=== PATIENT | female | born 1970 | race Caucasian/White ===

== ENCOUNTER → 2020-11-01 08:32 | Outpatient (CLI) | payer OTHER, SELFPAY ==
--- NOTE | 2020-11-01 08:32 | MM_ITS ---
PROCEDURE INFORMATION: Exam: MG Screening 3D Mammography Exam date and time: 11/01/2020 8:32 AM Age: 50 years old Clinical indication: screening mammogram TECHNIQUE: Imaging protocol: Screening tomosynthesis and 2D mammography including computer-aided detection (CAD) when performed. COMPARISON: No relevant prior studies available. FINDINGS: MAMMOGRAPHY: Breast composition: The breast tissue is heterogeneously dense, which may obscure small masses. Mass: None. Architectural distortion: No new or suspicious architectural distortion. Calcifications: No new or suspicious calcifications are present Asymmetric density: No new or suspicious asymmetric density is present Skin thickening: None. Axillary adenopathy: None. IMPRESSION: No mammographic evidence of malignancy. Recommend annual screening mammography unless otherwise clinically indicated. ASSESSMENT: BI-RADS category 1: Negative
== END ==
PROVIDERS: PCP Nurse Practitioner Family; Visit Provider Obstetrics & Gynecology
DX: Z12.31 Encounter for screening mammogram for malignant neoplasm of breast (principal)
CPT/HCPCS: 77063; 77067

== ENCOUNTER → 2021-11-06 10:49 | Outpatient (CLI) | payer OTHER, SELFPAY ==
--- NOTE | 2021-11-06 10:49 | MM_ITS ---
PROCEDURE INFORMATION: Exam: MG Bilateral Screening 3D Mammography Exam date and time: 11/06/2021 10:57 AM Age: 51 years old Clinical indication: Screening examination TECHNIQUE: Imaging protocol: Bilateral Screening tomosynthesis and 2D mammography including computer-aided detection (CAD) when performed. COMPARISON: MG MM DIG SCREENING MAMM BI W/CAD 11/01/2020 8:39 AM FINDINGS: MAMMOGRAPHY: Breast composition: The breast is heterogeneously dense, which may obscure small masses. Mass: None. Architectural distortion: No new or suspicious architectural distortion. Calcifications: No new or suspicious calcifications are present Asymmetric density: No new or suspicious asymmetric density is present Skin thickening: None. Axillary adenopathy: None. IMPRESSION: No mammographic evidence of malignancy. Recommend annual screening mammography unless otherwise clinically indicated. ASSESSMENT: BI-RADS category 1: Negative
== END ==
PROVIDERS: PCP Nurse Practitioner Family; Visit Provider Obstetrics & Gynecology
DX: Z12.31 Encounter for screening mammogram for malignant neoplasm of breast (principal)
CPT/HCPCS: 77063; 77067

== ENCOUNTER → 2022-04-13 10:57 | Outpatient (CLI) | payer OTHER, SELFPAY ==
--- NOTE | 2022-04-13 | CA_ITS ---
FINAL REPORT TECHNIQUE: Color Doppler, duplex Doppler and compression sonography of the left lower extremity deep venous systems was performed. CLINICAL HISTORY: .Pt has a visible varicosity in the Left thigh. Pt states this has been present for years. FINDINGS: There is no evidence of deep venous thrombosis from the level of the groin to the calf. The veins are patent and compressible. IMPRESSION: No evidence of deep venous thrombosis left lower extremity. Reviewed, Interpreted and Dictated by Anthony Dey III, MD Transcribed by Kadie Cruz Authenticated and . [facility]
== END ==
PROVIDERS: PCP Nurse Practitioner Family; Visit Provider Nurse Practitioner Family
DX: M79.89 Other specified soft tissue disorders (principal); I83.892 Varicose veins of left lower extremity with other complications
CPT/HCPCS: 93971

== ENCOUNTER → 2022-11-09 09:56 | Outpatient (CLI) | payer OTHER, SELFPAY ==
--- NOTE | 2022-11-09 09:56 | MM_ITS ---
PROCEDURE INFORMATION: Exam: MG Bilateral Screening 3D Mammography Exam date and time: 11/09/2022 9:54 AM Age: 52 years old Clinical indication: Screening examination TECHNIQUE: Imaging protocol: Bilateral Screening tomosynthesis and 2D mammography including computer-aided detection (CAD) when performed. COMPARISON: 1. MG MM DIG SCREENING MAMM BI W/CAD 11/06/2021 10:57 AM 2. MG MM DIG SCREENING MAMM BI W/CAD 11/01/2020 8:39 AM FINDINGS: MAMMOGRAPHY: Breast composition: There are scattered areas of fibroglandular density. Mass: None. Architectural distortion: None. Calcifications: No suspicious calcifications. Asymmetric density: None. Skin thickening: None. Axillary adenopathy: None. IMPRESSION: No mammographic evidence of malignancy. Annual screening is recommended unless otherwise clinically indicated. ASSESSMENT: BI-RADS Category 1: Negative
== END ==
PROVIDERS: PCP Nurse Practitioner Family; Visit Provider Obstetrics & Gynecology
DX: Z12.31 Encounter for screening mammogram for malignant neoplasm of breast (principal)
CPT/HCPCS: 77063; 77067

== ENCOUNTER 2022-12-25 19:27 | Emergency (ER) | payer OTHER, SELFPAY ==
[2022-12-25] VITALS (8 sets, daily range): BP systolic 118–157; BP diastolic 69–110; PULSE 74–96; RESP 15–19; TEMP 37; O2SAT 94–97; BMI 35.2
--- NOTE | 2022-12-25 19:26 | ECG_ITS ---
APPROVED REPORT Exam: Resting ECG HR:93 bpm ECG Measurements Heart Rate 93 AXES KS 165 P 66 QRSd 108 QRS 30 QT 354 T 56 QTc 405 Conclusion SINUS RHYTHM WITH OCCASIONAL VENTRICULAR PREMATURE COMPLEXES Left atrial abnormality BORDERLINE ECG UNCONFIRMED REPORT Electronically signed by : Bob Chatman MD 12/26/2022 09:54:28
--- NOTE | 2022-12-25 19:31 | XR_ITS ---
PROCEDURE INFORMATION: Exam: XR Chest Exam date and time: 12/25/2022 7:36 PM Age: 52 years old Clinical indication: Pain; Chest pressure; Additional info: Chest pain TECHNIQUE: Imaging protocol: Radiologic exam of the chest. Views: 1 view. COMPARISON: No relevant prior studies available. FINDINGS: Lungs: Opacities in both bases may represent atelectasis or pneumonia.. Pleural spaces: Unremarkable. No pleural effusion. No pneumothorax. Heart/Mediastinum: Unremarkable. No cardiomegaly. Bones/joints: Unremarkable. IMPRESSION: Opacities in both bases may represent atelectasis or pneumonia..
[2022-12-25 19:40] LABS: Basophils # 0.1 K/mm3 (0-0.2); Basophils % 0.8 % (0.1-2.0); Eosinophils # 0.2 K/mm3 (0.0-0.4); Eosinophils % 1.7 % (0.1-12.0); Hemoglobin 14.9 g/dL (12.2-16.2); Lymphocytes # 4.7 K/mm3 (0.7-4.5); Lymphocytes % 34.9 % (10-50); Mean Corpuscular HGB Conc 33.8 g/dL (31.8-35.4); Mean Corpuscular Hemoglobin 29.5 pg (27.0-31.2); Mean Corpuscular Volume 87.1 fl (81-99); Mean Platelet Volume 8.6 fl (7.4-10.4); Monocytes # 0.5 K/mm3 (0.1-1.0); Monocytes % 3.6 % (1.7-9.3); Platelet Count 236 K/mm3 (142-424); Red Blood Count 5.05 M/mm3 (4.20-5.40); Red Cell Distribution Width 13.2 % (11.5-17.5); White Blood Count 13.5 K/mm3 (4.8-10.8)
[2022-12-25 19:47] LABS: Activated Partial Thrombo Time 28.2 seconds (22.8-30.6); Alanine Aminotransferase 45 U/L (12-78); Albumin Level 4.4 g/dl (3.5-5.0); Albumin/Globulin Ratio 1.2 (1.1-1.8); Alkaline Phosphatase 70 U/L (38-126); Anion Gap 12.2 mEq/L (5-15); Aspartate Amino Transferase 45 U/L (14-36); Bilirubin,Total 0.6 mg/dl (0.2-1.3); Blood Urea Nitrogen 12 mg/dl (7-17); Calcium 8.7 mg/dl (8.4-10.2); Carbon Dioxide 27 mmol/L (22.0-30.0); Chloride 105 mmol/L (98-107); Creatinine Clearance Estimated 151 mL/min (50-200); Estimated Glomerular Filt Rate 88 ml/min (>60); GFR (African American) 106 ML/MIN (>60); Globulin 3.7 g/dL (1.3-3.2); Glucose 196 mg/dl (74-100); Potassium 4.2 mmoL/L (3.5-5.1); Prothrombin Time 10.8 seconds (10.1-12.5); Sodium 140 mmol/L (136-145); Total Protein,Serum 8.1 g/dl (6.3-8.2)
[2022-12-25 19:50] LABS: HCG Qualitative, Serum Negative (Negative)
[2022-12-25 19:58] LABS: NT Pro Brain Natriuretic Pep. 59.1 pg/mL (0-125)
[2022-12-25 20:03] LABS: Troponin I < 0.01 ng/ml (0.00-0.034)
[2022-12-25 20:22] LABS: C-Reactive Protein 17.2 mg/L (0-4)
[2022-12-25 20:35] LABS: Erythrocyte Sedimentation Rate 18 mm/hr (0-30)
[2022-12-25 20:36] LABS: Procalcitonin 0.075 ng/mL (0.0-2.0)
--- NOTE | 2022-12-25 20:42 | PC.NURSE ---
Blood cultures drawn per protocol and sent
--- NOTE | 2022-12-25 21:34 | CT_ITS ---
PROCEDURE INFORMATION: Exam: CTA Chest With Contrast Exam date and time: 12/25/2022 9:47 PM Age: 52 years old Clinical indication: Pain; Chest pressure; Additional info: Dyspnea, chest pain TECHNIQUE: Imaging protocol: Computed tomographic angiography of the chest with contrast. Exam focused on the arteries. 3D rendering (Not supervised by radiologist): MIP and/or 3D reconstructed images were created by the technologist. Radiation optimization: All CT scans at this facility use at least one of these dose optimization techniques: automated exposure control; mA and/or kV adjustment per patient size (includes targeted exams where dose is matched to clinical indication); or iterative reconstruction. Contrast material: ISOVUE; Contrast volume: 70 ml; Contrast route: INTRAVENOUS (IV); REPORTING DATA: Count of CT and Cardiac NM exams in prior 12 months: This patient has received 0 known CTs and 0 known cardiac nuclear medicine studies in the 12 months prior to the current study. COMPARISON: CR XR CHEST PORTABLE 12/25/2022 7:36 PM FINDINGS: Pulmonary arteries: No definite emboli detected. Some motion artifacts. Aorta: There is no aortic aneurysm. Calcified plaques. Some motion artifacts at the aortic root. No definite dissection. Lungs: No pulmonary consolidation. Approximate 8 mm left basilar peripheral pulmonary nodule versus pleural-based nodule, series 5, image 81, coronal series 1001, image 54, sagittal series 1002, image 66. Calcified granulomas in the right middle lobe and left lower lobe. Minimal subsegmental atelectasis in the posterior lower lungs. A few motion artifacts. Pleural spaces: Unremarkable. No significant pleural effusion. No pneumothorax. Heart: The heart is not enlarged. Trace pericardial fluid, no significant effusion. Heart RV/LV ratio: RV/LV ratio approximate 0.85, within normal limits. However, there is slight reflux of contrast into the IVC and hepatic veins, which could be due to underlying right heart disease. Coronary arteries: A few coronary artery calcifications. Lymph nodes: No significantly enlarged lymph nodes by short axis criteria. Liver: Prominent patchy fatty changes in the liver. No discrete mass as visualized. Areas of periportal sparing. Gallbladder and bile ducts: Cholecystectomy clips. No significant biliary dilatation as visualized. Spleen: Mild splenomegaly approximate 14.2 cm long axis series 5, image 94. Adrenal glands: Slight nodularity of the right adrenal gland series 5, image 106, question underlying 7 mm nodule, too small to accurately characterize, but no follow-up of tiny lesions of this size is indicated per ACR guidelines. Bones/joints: There is no evidence of acute fracture. Mild chronic appearing anterior wedge deformities of T10 through T12 vertebral bodies.There are spinal degenerative changes, with multilevel disc narrrowing and spondylosis. No high-grade listhesis. Soft tissues: There are no soft tissue masses or fluid collections. IMPRESSION: 1. No findings of pulmonary emboli. 2. Coronary artery calcifications. 3. Chronic granulomatous changes, patchy subsegmental atelectasis in the lungs. No focal consolidation. 4. 8 mm left basilar versus pleural-based versus pulmonary nodule which could be a noncalcified granuloma, but is indeterminate.For patients at low risk (minimal or absent history of smoking and of other known risk factors), recommend CT Chest at 6-12 months, then consider CT Chest at 18-24 months. For patients at high risk (history of smoking or of other known risk factors), recommend CT Chest at 6-12 months, then CT Chest at 18-24 months. (Reference: Gary) 5. Additional nonemergency and chronic findings as above, including fatty
--- NOTE | 2022-12-25 21:43 | PC.NURSE ---
patient gone to RAD at this time.
--- NOTE | 2022-12-25 21:43 | PC.NURSE ---
pt to ct scan
--- NOTE | 2022-12-25 21:51 | PC.NURSE ---
patient back in the room at this time.
--- NOTE | 2022-12-25 21:52 | HMH.EDCP ---
Discharge Plan Disposition Patient Disposition: Home, Self-Care Prescriptions Prescriptions: No Action escitalopram oxalate [Lexapro] 5 mg tablet 5 mg PO ONCE lisinopril 5 mg tablet 5 mg PO ONCE Referrals Follow up/Referrals: Nirali Denson APRN [Primary Care Provider] - See instructions Clinical Impressions Clinical Impression: Atypical chest pain Instructions Patient Instructions: DI for Atypical Chest Pain Discharge ED Provider: Irwin (ED)Bill Chest Pain HPI General Chief Complaint: Chest Pain Stated Complaint: Chest pain. Palpitations Time Seen by Provider: 12/25/22 21:00 Mode of Arrival: EMS Source of Information: Patient, EMS and Medical Record Limitations: No Limitations Description of Symptoms (Recalled from ER Triage Doc. by RN): 52 F presents from home via EMS after she called out for chest pain that started around 1800 this evening. Supervisor [employer] states he felt an irregular pulse, so he completed a 12-lead EKG which showed frequent PVC's. Patient denies history of cardiac issues and irregular heart rhythm. Hypternsive in route, FSBS 218. GCS 15 on arrival, NAD. History of Present Illness HPI narrative: bilat ant chest pain this pm - orse with insp MD complaint: chest pain indicative of cardiac Onset (ago): hour(s) Duration: intermittent Activity at onset: during rest Pain location: left chest Severity: moderate Quality: sharp Relieving factors: nothing Associated symptoms: dyspnea Risk Factors for CAD: Hypertension, Family Hx of CAD and Smoking Treatments prior to or on arrival for Cardiac Chest Pain: none EVERETT Score for Non-Stemi Age of Patient: 50-59 years old Heart Rate: 70-89 bpm Systolic Blood Pressure: 120-139 mmhg Serum Creatinine: 0.40-0.79 mg/dl CHF Killip Class: I-No CHF Other Risk Factors: None Non-Stemi Risk Score: 88 Risk Stratification: 1-108 = Low Risk Related Data On Oral Contraceptives: No Home Medications Medication Instructions Recorded Confirmed escitalopram oxalate 5 mg tablet 5 mg PO ONCE Anxiety 09/14/17 12/25/22 (Lexapro) lisinopril 5 mg tablet 5 mg PO ONCE High Blood Pressure 09/14/17 12/25/22 Allergies Allergy/AdvReac Type Severity Reaction Status Date / Time No Known Allergies Allergy Verified 10/28/20 08:55 [facility] Disclaimer: The information contained in this section may have been updated after the patient was seen, as this information can be updated by other users. Medical History (Updated 12/25/22 @ 23:43 by Bill Gayle (ED)MD) Anxiety HTN (hypertension) Social History Smoking Status: Current some day smoker tobacco type: cigarettes packs per day: 1 alcohol intake: never substance use type: denies use current occupational status: unemployed and disabled Travel in the last 8 weeks: None ROS Obtained: Yes All systems reviewed & no additional complaints except as documented Physical Exam General General appearance: alert Head Head exam: normocephalic Eye Eye exam: Present PERRL and EOMI ENT ENT exam: Present mucous membranes moist Neck Neck exam: Present trachea midline Chest Chest inspection: Absent tenderness Respiratory Respiratory exam: Present normal lung sounds bilaterally Cardiovascular Cardiovascular exam: Present regular rate; Absent systolic murmur or rubs Abdominal Exam Abdominal exam: Present soft Extremities Exam Extremities exam: Present full ROM Neurological Exam Neurological exam: Present alert, oriented X3 and CN II-XII intact; Absent motor sensory deficit Psychiatric Psychiatric exam: Present normal affect Skin Skin exam: Absent rash Medical Decision Making Medical Records Medical records reviewed: Yes I reviewed the patient's medical records. Shad Inquiry Pt receiving controlled substance: No Vital Signs: 12/25/22 19:27 12/25/22 19:55 12/25/22 19:40 Temperature 98.6 F Temperature Source Oral Pulse Rate 96 H 83 Pulse Rate [Left] 95 H Respi
--- NOTE | 2022-12-25 23:02 | PC.NURSE ---
2nd tropinin drawn and sent to lab
--- NOTE | 2022-12-25 23:08 | PC.NURSE ---
Pt's family calling for an update, pt stated it was ok to give update. She was asking her to call her friend ramírez for a ride.
--- NOTE | 2022-12-25 23:11 | PC.NURSE ---
Called pt's friend Vandana for a ride home, she is unable. Pt has no one else to get her. Stated we can call [employer] to see if they can transport her home.
[2022-12-25 23:30] LABS: Troponin I < 0.01 ng/ml (0.00-0.034)
--- NOTE | 2022-12-25 23:46 | PC.NURSE ---
Called [employer] to see if they could transport pt home. They will call back.
== END 2022-12-25 23:53 | disposition home or self-care (01) ==
PROVIDERS: Emergency Medicine; Emergency Provider Emergency Medicine; PCP Nurse Practitioner Family
DX: R07.89 Other chest pain (principal); I10 Essential (primary) hypertension; F41.9 Anxiety disorder, unspecified; F17.210 Nicotine dependence, cigarettes, uncomplicated
CPT/HCPCS: 71045; 71275; 80053; 83880; 84145; 84484; 84703; 85025; 85610; 85651; 85730; 86140; 87040; 93005; 96361; 96374; 96375; 99285; J0131; Q9967

== ENCOUNTER → 2023-01-13 11:05 | Outpatient (CLI) | payer OTHER, SELFPAY ==
--- NOTE | 2023-01-13 11:06 | NM_ITS ---
APPROVED REPORT Exam: Nuclear Stress Test Indication: Chest pain, HTN, Tobacco use, Family history Patient Location: Outpatient Stress Tech: Ophelia NOYOLA Tech:Omaira Barillas, ARRT, RT (R)(N) Ht: 5 ft 7 in Wt: 232 lbs Bra Size: 36B HR: 83 bpm BP: 135/78 mmHg BSA: 2.15 m2 Rhythm: NSR TID: 0.98 BMI: 36.3 History: Chest pain, HTN, Tobacco use, Family history Procedure: Patient received 0.4 mg of intravenous Lexiscan, resting heart rate 83 bpm, resting blood pressure 135/78 mmHg, with Lexiscan maximum heart rate achieved was 100 bpm which is % of the maximum predicted heart rate and blood pressure was 151/90 mmHg. With Lexiscan, patient denied any complaint of chest pain. Cardiac Stress and Resting SPECT Images: Cardiac Stress and Resting SPECT images were obtained using technetium 99m Myoview 32.8 mCi stress and 10.15 mCi at rest. Resting and stress imaging in both supine and prone positions demonstrate a small sized, moderate, fixed perfusion defect in the basal inferior LV wall. Gated imaging demonstrates moderate reduction in global LV systolic function. There is moderate to severe hypokinesis in the basal inferior wall. LVEF is calculated at 37%. Of note, the LVEF may be inaccurate in the setting of frequent PVCs. Conclusion: Small sized, moderate, fixed perfusion defect in the basal inferior LV wall. No evidence of reversible ischemia. Gated imaging demonstrates moderate reduction in global LV systolic function. There is moderate to severe hypokinesis in the basal inferior wall. LVEF is calculated at 37%. Of note, the LVEF may be inaccurate in the setting of frequent PVCs. Electronically signed by : Denae Campo, 01/14/2023 12:40:03
--- NOTE | 2023-01-13 13:25 | HMH.ITSHM ---
Current Home Medications as stated by this patient Magy Diaz or primary care sales representative. []LISINOPRIL LEVOTHYROXINE ESCITALOPRAM
--- NOTE | 2023-01-13 14:30 | CA_ITS ---
APPROVED REPORT Exam: Pharmacologic Technologist: Ophelia Mac, Ht: 5 ft 7 in Wt: 228 lbs BSA: 2.14 m2 HR: 78 bpm BP: 135/78 mmHg Rhythm: NSR Medical History Medications: Lisinopril,,,,, Levothyroxine,,,,, Lexapro,,,,, Stress Test Details Test: LEXISCAN Reason for pharmacologic stress test: physical limitation. HR Resting HR: 83 bpm Max Heart Rate (APMHR): 168 bpm Max HR Achieved: 100 bpm Target HR (85% APMHR): 143 bpm % of APMHR: 60 Recovery HR: 89 bpm BP Resting BP: 135.0/78.0 mmHg Max BP: 151.0/90.0 mmHg Recovery BP: 147.0/87.0 mmHg ECG Resting ECG: NSR, PVCs in trigeminal pattern Stress ECG: No change Arrhythmia: PVCs Clinical Exercise duration: 04:00 min Highest Stage Achieved: Exercise capacity: n/a METs Stress ECG Conclusion Symptoms: Mild generalized discomfort. No CP. Arrhythmias/Ectopy: frequent PVCs. ST-T Changes: No significant changes. Conclusion: Unremarkable Lexiscan stress. Myoview images reported separately. Test Summary REST . . . . . . . Resting REST 04:05 . . 83 . 135/ 78 . . Stage 1 01:00 . . 90 . . . . Stage 2 01:00 . . 96 . 146/ 87 . . Stage 3 01:00 . . 95 . 151/ 90 . . Stage 4 01:00 . . 90 . 149/ 80 . Stop exercise at 04:00 RECOVERY 01:00 . . 90 . 140/ 81 . . RECOVERY 02:00 . . 88 . 140/ 81 . . RECOVERY 03:00 . . 84 . 147/ 87 . . RECOVERY 03:15 . . 90 . 147/ 87 . . Electronically signed by : Denae Campo, 01/14/2023 12:37:15
--- NOTE | 2023-01-13 14:35 | US_ITS ---
FINAL REPORT CLINICAL HISTORY: HYPOTHYROIDISM COMPARISON: None FINDINGS: Thyroid ultrasound: The right lobe of the thyroid measures 5.6 x 1.6 x 1.5 cm in size. There are three small subcentimeter nodules present in the right lobe of the thyroid gland. These nodules are all 5 mm or less in greatest diameter, are hypoechoic and solid in appearance. The echotexture otherwise in the right lobe of the thyroid is unremarkable. The left lobe of the thyroid gland measures 1.5 x 4.8 x 1.1 cm in size. No nodules are identified in the left thyroid gland, and the echotexture is unremarkable. The isthmus is normal in appearance and measures 3.2 mm in thickness. IMPRESSION: Benign appearing thyroid nodules in the right lobe of the thyroid gland. These are all categorized as TI-RADS category 4 nodules, and no follow-up is required at this time due to their small size. Otherwise unremarkable thyroid ultrasound. Reviewed, Interpreted and Dictated by Orin Cardona MD Transcribed by Elizabeth Workman Authenticated and [facility]
== END ==
LOC: RAD 11:06
PROVIDERS: PCP Nurse Practitioner Family; Visit Provider Nurse Practitioner Family
DX: R07.89 Other chest pain (principal); I25.10 Atherosclerotic heart disease of native coronary artery without angina pectoris; F17.200 Nicotine dependence, unspecified, uncomplicated; E03.9 Hypothyroidism, unspecified
CPT/HCPCS: 76536; 78452; 93017; A9502; J2785

== ENCOUNTER → 2023-01-20 09:59 | Outpatient (CLI) | payer OTHER, SELFPAY ==
--- NOTE | 2023-01-20 10:11 | CA_ITS ---
APPROVED REPORT EXAM: Comprehensive 2D, Doppler, and color-flow Echocardiogram Coal Screener: Marry Hall RT(R) Ht: 5 ft 7 in Wt: 228lbs BSA: 2.14 BP: 5/7 mmHg Indications: CP, HTN, smoker, coronary calcifications on chest CTA. 2D Dimensions Aortic Root 1.86 cm F: 2.7 - 3.3 LVEF (Go's) 59.30 % F: 54 - 74 LV Volume 71.80 mL F: 46 - 106 LV Volume Index 33.55 mL/m2 F: 29 - 61 LA Volume 24.80 mL LA Volume Index 11.59 mL/m2 (M/F) 16-34 M-Mode Dimensions RVDd 2.68 cm (0.9-2.6) LA Diam 3.12 cm (1.9-4.0) LVDd 4.58 cm (3.5-5.7) Ao Diam 2.62 cm (2.0-3.7) LVDs 3.58 cm (3.5-5.7) IVSd 0.97 cm (0.6-1.1) PWd 0.97 cm (0.6-1.1) EF (Teich) 44.20% FS 21.80% EDV (Teich) 96.30 mL ESV (Teich) 53.70 mL LV Diastology E Decel Time 150.00 (160-240 msec) E/A Ratio 0.8 MED E' 8.20 (< 7 cm/sec) E'/MED E' Ratio 6.57 (>14) LAT E' 8.90 (<10 cm/sec) E/LAT E' Ratio 6.06 (>14) Mitral Valve MV E Max Keven. 54.00 (40-130 cm/s) MV A Velocity 68.00 (40-130 cm/s) E/A Ratio 0.79 MV Decel. Time 150.00 (160-240 ms) MV PHT 44.00 ms Left Ventricle The left ventricle is normal size. The left ventricular systolic function is normal. The left ventricular ejection fraction is within the normal range. There is increased LV wall thickness. There is normal LV segmental wall motion. The left ventricular diastolic function is normal. LVEF is 55%. Right Ventricle The right ventricle is normal size. The right ventricular systolic function is normal. Atria The left atrium size is normal. The right atrium size is normal. There is no Doppler evidence of interatial shunt. Aortic Valve The aortic valve opens well. There is no aortic valvular stenosis. No aortic regurgitation is present. Mitral Valve The mitral valve is normal in structure. No evidence of mitral valve stenosis. Trace mitral regurgitation. Tricuspid Valve The tricuspid valve leaflets are thin and pliable. Trace tricuspid regurgitation. The TR jet is insufficient to estimate RVSP. Pulmonic Valve The pulmonary valve is normal in structure. Trace pulmonic regurgitation. Great Vessels The aortic root is normal in size. The ascending aorta is normal in size. IVC is normal in size and collapses >50% with inspiration. Pericardium There is no pericardial effusion. Other Information Study Quality: Adequate Conclusion Normal biventricular systolic function. No significant valvular disease. Electronically signed by : Denae Campo, 01/20/2023 19:03:43
== END ==
PROVIDERS: PCP Nurse Practitioner Family; Visit Provider Nurse Practitioner Family
DX: R07.89 Other chest pain (principal); I25.10 Atherosclerotic heart disease of native coronary artery without angina pectoris; F17.200 Nicotine dependence, unspecified, uncomplicated
CPT/HCPCS: 93306

== ENCOUNTER → 2023-05-11 09:10 | Outpatient (CLI) | payer OTHER, SELFPAY ==
--- NOTE | 2023-05-11 09:14 | XR_ITS ---
FINAL REPORT CLINICAL HISTORY: foot pain FINDINGS: 3 views of the right foot were obtained. There is no acute fracture or dislocation. There are mild degenerative changes at the first MTP joint. There is a plantar calcaneal spur. IMPRESSION: No acute process. Reviewed, Interpreted and Dictated by Anthony Dey III, MD Transcribed by Zack Youngblood Authenticated and [facility]
== END ==
PROVIDERS: Visit Provider Podiatrist
DX: M79.671 Pain in right foot (principal)
CPT/HCPCS: 73630

== ENCOUNTER 2023-09-24 07:11 | Emergency (ER) | payer OTHER, SELFPAY ==
[2023-09-24 07:11] VITALS: BP 161/109; PULSE 89; RESP 15; TEMP 36.6; O2SAT 96; BMI 39.1
--- NOTE | 2023-09-24 07:14 | XR_ITS ---
FINAL REPORT CLINICAL HISTORY: atraumatic pain FINDINGS: Right femur Two views were obtained. There is no acute fracture or dislocation. The joint spaces appear normal. No soft tissue abnormality is identified. IMPRESSION: No acute process. Reviewed, Interpreted and Dictated by Anthony Dey III, MD Transcribed by Vandana Sierra Authenticated and [facility]
--- NOTE | 2023-09-24 07:14 | CA_ITS ---
FINAL REPORT TECHNIQUE: Color Doppler, duplex Doppler and compression sonography of the right lower extremity venous system was performed. CLINICAL HISTORY: right leg pain/right hip pain COMPARISON: None FINDINGS: There is no evidence of deep venous thrombosis from the level of the groin to the calf. The veins are patent and compressible. IMPRESSION: No evidence of deep venous thrombosis right lower extremity. Reviewed, Interpreted and Dictated by Anthony Dey III, MD Transcribed by Elizabteh Workman Authenticated and [facility]
--- NOTE | 2023-09-24 07:14 | XR_ITS ---
FINAL REPORT CLINICAL HISTORY: atraumatic pain FINDINGS: Right hip Four views were obtained. There is no acute fracture or dislocation. The joint spaces appear normal. No soft tissue abnormality is identified. IMPRESSION: No acute process. Reviewed, Interpreted and Dictated by Anthony Dey III, MD Transcribed by Vandana Sierra Authenticated and [facility]
--- NOTE | 2023-09-24 07:16 | HMH.EDGENADL ---
Discharge Plan Disposition Patient Disposition: Home, Self-Care Chief Complaint: PAIN Prescriptions Prescriptions: No Action escitalopram oxalate [Lexapro] 5 mg tablet 5 mg PO ONCE levothyroxine 25 mcg tablet 25 mcg PO DAILY escitalopram oxalate 10 mg tablet PO atorvastatin 20 mg tablet 20 mg PO DAILY lisinopril 10 mg tablet 10 mg PO DAILY metformin 500 mg tablet 500 mg PO DAILY meloxicam 7.5 mg tablet 7.5 mg PO ONCE Qty: 30 2RF Referrals Follow up/Referrals: Halley Ruano APRN [Primary Care Provider] - See instructions Activity Restrictions/Add. Instructions Additional Instructions/Restrictions: At this time it was felt you are safe to be discharged home. If new or worsening symptoms please do not hesitate to return the emergency department. If symptoms persist please follow-up with your family doctor as you are able. Clinical Impressions Clinical Impression: Acute leg pain Discharge ED Provider: Rah Salazar General Adult HPI General Chief complaint: PAIN Stated complaint: R Leg Pain Time Seen by Provider: 09/24/23 07:14 History of Present Illness HPI narrative: Patient is a 53-year-old female with no pertinent past medical history who presents to the emergency department for evaluation of leg pain. Onset was acute over the last 24 hours. It starts in the lateral aspect of her hip and extends over her proximal dorsal thigh. Intermittently extending down to her shins. Denies trauma. Patient has never had this pain before. It does not extend into her back. No other acute complaints at this time. Related Data Home Medications Medication Instructions Recorded Confirmed escitalopram oxalate 5 mg tablet 5 mg PO ONCE Anxiety 09/14/17 08/03/23 (Lexapro) levothyroxine 25 mcg tablet 25 mcg PO DAILY 01/06/23 08/03/23 atorvastatin 20 mg tablet 20 mg PO DAILY 08/03/23 08/03/23 escitalopram oxalate 10 mg tablet mg PO 08/03/23 08/03/23 lisinopril 10 mg tablet 10 mg PO DAILY 08/03/23 08/03/23 metformin 500 mg tablet 500 mg PO DAILY 08/03/23 08/03/23 Previous Rx's Medication Instructions Recorded meloxicam 7.5 mg tablet 7.5 mg PO ONCE pain #30 tabs 06/10/23 Allergies Allergy/AdvReac Type Severity Reaction Status Date / Time No Known Allergies Allergy Verified 09/24/23 07:37 PFSH PFSH Disclaimer: The information contained in this section may have been updated after the patient was seen, as this information can be updated by other users. Medical History Anxiety HTN (hypertension) Social History Smoking Status: Current every day smoker tobacco type: cigarettes packs per day: 1 alcohol intake: never substance use type: denies use current occupational status: unemployed and disabled Travel in the last 8 weeks: None ROS Obtained: Yes Systems reviewed as appropriate & no additional complaints except as documented Physical Exam General General appearance: alert and in no apparent distress Head Head exam: atraumatic and normocephalic Eye Eye exam: Present PERRL ENT ENT exam: Present mucous membranes moist Neck Neck exam: Present normal inspection Chest Chest inspection: Present normal inspection and symmetric chest wall rise Respiratory Respiratory exam: Absent respiratory distress Cardiovascular Cardiovascular exam: Present regular rate and normal rhythm Abdominal Exam Abdominal exam: Present soft Extremities Exam Extremities exam: Present normal inspection and other (Palpable right dorsal pedal pulse, no asymmetric swelling of the right lower extremity, no discoloration right lower extremity. Limited flexion at the hip secondary to pain. 5 out of 5 strength all joints right lower extremity.) Back Exam Back exam: Present other (No midline tenderness, no overlying skin discoloration or rashes) Neurological Exam Neurological exam: Present alert Psychiatric Psychiatric exam: Present normal affect Skin Skin exam: Present warm and dry Medical Decision Making Shad Inquiry Pt receiving controlled substance: No Vital Signs: 09/24/23 07:11 09/24/23 08:00 09/24/23 08:15 Temperature 97.8 F Temperature Source Oral Pulse Rate 70 80 Pulse Rate [Left Radial] 89 Respiratory Rate 15 Blood Pressure 209/115 H 211/183 H Blood Pressure [Right Arm] 161/109 H Blood Pressure Mean Blood Pressure Mean [Right Arm] 126 02 Sat by Pulse Oximetry 96 96 96 Oxygen Delivery Method Room Air Room Air Room Air 09/24/23 08:31 Temperature Temperature Source Pulse Rate 66 Pulse Rate [Left Radial] Respiratory Rate 18 Blood Pressure 155/90 H Blood Pressure [Right Arm] Blood Pressure Mean 118 Blood Pressure Mean [Right Arm] 02 Sat by Pulse Oximetry 96 Oxygen Delivery Method Lab Data Lab Results 09/24/23 07:20: Total Creatine Kinase 49 Orders (Tests/Meds): ED MEDICATIONS Discontinued Medications Generic Name Dose Route Start Last Admin Trade Name Tramaine PRN Reason Stop Dose Admin Acetaminophen 1,000 mg 09/24/23 07:14 09/24/23 07:25 Acetaminophen 500mg Tab PO 09/24/23 07:15 1,000 mg ONCE ONE Administration Ibuprofen 600 mg 09/24/23 07:14 09/24/23 07:24 Ibuprofen 600 Mg Tablet PO 09/24/23 07:15 600 mg ONCE ONE Administration Methocarbamol 1,000 mg 09/24/23 07:15 09/24/23 07:25 Methocarbamol 500mg Tablet PO 09/24/23 07:16 1,000 mg ONCE ONE Administration ORDERS Category Date Time Status Femur XR right 2 views [XR femur RT 2V] Stat Exams 09/24/23 07:14 Completed Hip XR right minimum 2 views [XR hip RT 2-3V w/pelvis] Exams 09/24/23 07:14 Completed Stat CK [Creatine Kinase] Stat Lab 09/24/23 07:20 Completed CA venous doppler LE RT Stat Y 09/24/23 07:14 Completed Medical Decision Narrative: In summary patient is a 53-year-old female with past medical history described above who presents emergency department for evaluation of atraumatic right lower extremity pain. Patient is hemodynamically stable nontoxic-appearing upon arrival, afebrile. Patient has palpable dorsal pedal pulse, 5 out of 5 strength in the right lower extremity, given this no concern for arterial pathology or CVA. Pain is reproducible with range of motion suggesting musculoskeletal versus sciatica pain. Differential also includes DVT, myositis. Given this workup will be conducted with duplex ultrasound, plain film right hip and right femur, CK. Initial interventions include Tylenol, ibuprofen, methocarbamol. Workup reviewed by me, CK is normal. Plain films informally interpreted by me, no acute displaced fracture or obvious osseous lesions. Formal read showed no acute process. Venous Doppler shows no evidence of DVT of the right lower extremity. Upon repeat evaluation patient did have some persistent pain however was ambulatory bedside and it was felt that all emergent causes of pain have been ruled out at this time and patient is appropriate for expectant management. Critical Care Critical Care Time Critical Care Time: No
[2023-09-24] MEDS: IBUPROFEN 600 MG TABLET PO (07:24)
[2023-09-24] MEDS: ACETAMINOPHEN 500MG TAB 1000 MG PO (07:25)
[2023-09-24] MEDS: METHOCARBAMOL 500MG TABLET 1000 MG PO (07:25)
--- NOTE | 2023-09-24 07:28 | PC.NURSE ---
pt to CT via wheelchair
--- NOTE | 2023-09-24 07:28 | PC.NURSE ---
pt to xray via wheelchair
--- NOTE | 2023-09-24 07:38 | PC.NURSE ---
pt back to room from xray
[2023-09-24 08:00] VITALS: BP 209/115; PULSE 70; O2SAT 96
[2023-09-24 08:15] VITALS: BP 211/183; PULSE 80; O2SAT 96
[2023-09-24 08:31] VITALS: BP 155/90; PULSE 66; RESP 18; O2SAT 96
[2023-09-24 08:55] LABS: Creatine Kinase 49 U/L (30-135)
[2023-09-24 09:00] VITALS: BP 166/96; PULSE 68; RESP 20; O2SAT 96
--- NOTE | 2023-09-24 09:13 | PC.NURSE ---
Called pt's friend Vandana for a ride home for pt. States she will be here in 10 min.
[2023-09-24 09:15] VITALS: BP 188/89; PULSE 69; RESP 19; TEMP 36.7; O2SAT 96
== END 2023-09-24 09:36 | disposition home or self-care (01) ==
PROVIDERS: Emergency Provider Emergency Medicine; PCP Nurse Practitioner Family
DX: M79.604 Pain in right leg (principal); F17.210 Nicotine dependence, cigarettes, uncomplicated; I10 Essential (primary) hypertension
CPT/HCPCS: 73502; 73552; 82550; 93971; 99284

== ENCOUNTER 2023-11-19 09:53 | Outpatient (CLI) | payer OTHER, SELFPAY ==
--- NOTE | 2023-11-19 10:04 | MM_ITS ---
PROCEDURE INFORMATION: Exam: MG Bilateral Screening 3D Mammography Exam date and time: 11/19/2023 9:52 AM Age: 53 years old Clinical indication: Screening. No family history of breast cancer. TECHNIQUE: Imaging protocol: Bilateral Screening tomosynthesis and 2D mammography including computer-aided detection (CAD) when performed. COMPARISON: 1. MG MM DIG SCREENING MAMM BI W/CAD 11/09/2022 9:54 AM 2. MG MM DIG SCREENING MAMM BI W/CAD 11/06/2021 10:57 AM 3. MG MM DIG SCREENING MAMM BI W/CAD 11/01/2020 8:39 AM FINDINGS: MAMMOGRAPHY: Breast composition: There are scattered areas of fibroglandular density. Mass: No suspicious mass. Architectural distortion: None. Calcifications: No suspicious calcifications. Asymmetric density: None. Skin thickening: None. Axillary adenopathy: None. IMPRESSION: No mammographic evidence of malignancy. Annual screening is recommended unless otherwise clinically indicated. ASSESSMENT: BI-RADS Category 1: Negative
== END 2023-11-19 23:59 | disposition home or self-care (01) ==
LOC: RAD 09:53
PROVIDERS: PCP Nurse Practitioner; Visit Provider Nurse Practitioner
DX: Z12.31 Encounter for screening mammogram for malignant neoplasm of breast (principal)
CPT/HCPCS: 77063; 77067

== ENCOUNTER 2024-01-21 17:02 | Outpatient (CLI) | payer OTHER, SELFPAY ==
--- NOTE | 2024-01-21 17:04 | MR_ITS ---
PROCEDURE INFORMATION: Exam: MR Right Lower Extremity Joint Without Contrast, Knee Exam date and time: 01/21/2024 5:12 PM Age: 53 years old Clinical indication: Pain; Knee; Right TECHNIQUE: Imaging protocol: Magnetic resonance imaging of the right lower extremity joint without contrast. Exam focused on the knee. COMPARISON: CR XR FEMUR RT 2V 09/24/2023 7:23 AM FINDINGS: Bones/joints: The alignment is near anatomic. No fracture. No suspicious marrow signal. No significant chondromalacia. Trace knee joint effusion. Periarticular cysts: There is a minimally displaced tear of the posteromedial root of the medial meniscus with 9 mm parameniscal cyst present. No significant extrusion. Medial meniscus: Unremarkable. No tear. Lateral meniscus: Unremarkable. No tear. Anterior cruciate ligament: Unremarkable. No tear. Posterior cruciate ligament: Unremarkable. No tear. Medial capsule and supporting structures: Unremarkable. No tear. Lateral capsule and supporting structures: Unremarkable. No tear. Extensor mechanism of knee: Unremarkable. No tear. Soft tissues: Minimal soft tissue edema anterior to the knee. IMPRESSION: There is a minimally displaced tear of the posteromedial root of the medial meniscus.
== END 2024-01-21 23:59 | disposition home or self-care (01) ==
LOC: RAD 17:02
PROVIDERS: PCP Nurse Practitioner; Visit Provider Nurse Practitioner
DX: M79.605 Pain in left leg (principal)
CPT/HCPCS: 73721

== ENCOUNTER 2024-03-06 08:44 | Outpatient (CLI) | payer OTHER, SELFPAY ==
--- NOTE | 2024-03-06 09:12 | XR_ITS ---
FINAL REPORT CLINICAL HISTORY: Right Tib fib Pain COMPARISON: None FINDINGS: AP and lateral views of the right tibia and fibula were obtained. There is no prior exam for comparison. There is no acute fracture of the right tibia or fibula. The knee and ankle appear intact. The soft tissues are normal. IMPRESSION: No acute osseous abnormality of the right tibia or fibula. Reviewed, Interpreted and Dictated by Precious Levi MD Transcribed by Elizabeth Workman Authenticated and . [facility]
--- NOTE | 2024-03-06 09:24 | XR_ITS ---
FINAL REPORT CLINICAL HISTORY: right knee pain FINDINGS: AP, lateral and oblique views of the right knee were obtained. There is no prior exam for comparison. There is no acute osseous abnormality of the right knee. The joint space is preserved. The soft tissues are normal. There is no joint effusion. IMPRESSION: No acute osseous abnormality of the right knee. Reviewed, Interpreted and Dictated by Precious Levi MD Transcribed by Simona Leslie Authenticated and [facility]
== END 2024-03-06 23:59 | disposition home or self-care (01) ==
LOC: RAD 08:48
PROVIDERS: PCP Nurse Practitioner; Visit Provider Physician Assistant
DX: M79.604 Pain in right leg (principal); M25.561 Pain in right knee
CPT/HCPCS: 73562; 73590

== ENCOUNTER 2024-11-28 12:51 | Outpatient (CLI) | payer OTHER, SELFPAY ==
--- NOTE | 2024-11-28 12:53 | MM_ITS ---
PROCEDURE INFORMATION: Exam: MG Bilateral Screening 3D Mammography Exam date and time: 11/28/2024 1:06 PM Age: 54 years old Clinical indication: Screening examination TECHNIQUE: Imaging protocol: Bilateral Screening tomosynthesis and 2D mammography including computer-aided detection (CAD) when performed. COMPARISON: 1. MG MM DIG SCREENING MAMM BI W/CAD 11/19/2023 9:52 AM 2. MG MM DIG SCREENING MAMM BI W/CAD 11/09/2022 9:54 AM FINDINGS: MAMMOGRAPHY: Breast composition: There are scattered areas of fibroglandular density. Mass: None. Architectural distortion: None. Calcifications: No suspicious calcifications. Asymmetric density: None. Skin thickening: None. Axillary adenopathy: None. IMPRESSION: No mammographic evidence of malignancy. Annual screening is recommended unless otherwise clinically indicated. ASSESSMENT: BI-RADS Category 1: Negative.
== END 2024-11-28 23:59 | disposition home or self-care (01) ==
LOC: RAD 12:51
PROVIDERS: PCP Nurse Practitioner; Visit Provider Nurse Practitioner
DX: Z12.31 Encounter for screening mammogram for malignant neoplasm of breast (principal); R92.323 Mammographic fibroglandular density, bilateral breasts
CPT/HCPCS: 77063; 77067

== ENCOUNTER 2025-05-20 00:06 | Emergency (ER) | payer OTHER, SELFPAY ==
--- NOTE | 2025-05-20 00:07 | XR_ITS ---
PROCEDURE INFORMATION: Exam: XR Chest Exam date and time: 05/20/2025 12:31 AM Age: 54 years old Clinical indication: Injury or trauma; Fall; Blunt trauma (contusions or hematomas) TECHNIQUE: Imaging protocol: Radiologic exam of the chest. Views: 1 view. COMPARISON: CT ANGIO CHEST PE PROTOCOL 12/25/2022 9:47 PM FINDINGS: Lungs: Calcified granuloma at the right lung base Pleural spaces: Unremarkable. No pleural effusion. No pneumothorax. Heart/Mediastinum: Unremarkable. No cardiomegaly. Bones/joints: Unremarkable. IMPRESSION: No acute findings.
--- NOTE | 2025-05-20 00:07 | XR_ITS ---
PROCEDURE INFORMATION: Exam: XR Pelvis Exam date and time: 05/20/2025 12:31 AM Age: 54 years old Clinical indication: Injury or trauma; Fall; Blunt trauma (contusions or hematomas); Bilateral; Pelvic region TECHNIQUE: Imaging protocol: Radiologic exam of the pelvis. Views: 1 or 2 view. COMPARISON: CR XR HIP RT 2-3V W/PELVIS 09/24/2023 7:20 AM FINDINGS: Bones/joints: Unremarkable. No acute fracture. Soft tissues: Unremarkable. IMPRESSION: No acute findings.
--- NOTE | 2025-05-20 00:07 | ECG_ITS ---
APPROVED REPORT Exam: Resting ECG HR:92 bpm ECG Measurements Heart Rate 92 AXES MD 178 P 59 QRSd 106 QRS 31 QT 356 T 53 QTc 406 Conclusion SINUS RHYTHM NORMAL ECG UNCONFIRMED REPORT Electronically signed by : SANKET GARCIA, 05/20/2025 23:00:27
[2025-05-20 00:11] VITALS: BP 153/88; PULSE 95; RESP 19; TEMP 36.9; O2SAT 94; BMI 41.3
--- NOTE | 2025-05-20 00:11 | HMH.EDGENADL ---
Discharge Plan Disposition Patient Disposition: Home, Self-Care Condition: Good Prescriptions Prescriptions: No Action levothyroxine 25 mcg tablet 25 mcg PO DAILY escitalopram oxalate 10 mg tablet PO atorvastatin 20 mg tablet 20 mg PO DAILY lisinopril 10 mg tablet 10 mg PO DAILY metformin 1,000 mg tablet PO diclofenac sodium 50 mg tablet,delayed release (DR/EC) PO (DME) lancets [OneTouch Delica Plus Lancet] 33 gauge misc See Rx Instructions .ROUTE .MEDSUPPLY Qty: 100 Rx Instructions: As directed Referrals Follow up/Referrals: Cha Almaraz APRN [Primary Care Provider, Medical] - See instructions Activity Restrictions/Add. Instructions Additional Instructions/Restrictions: Please follow-up with your primary care provider. Please return to the emergency department if you develop any new or worsening symptoms or become concerned for your health. Clinical Impressions Clinical Impression: Fall Qualifiers: Encounter type: initial encounter Qualified Code(s): W19.XXXA - Unspecified fall, initial encounter Print Language Print Language: Sinhala Discharge ED Provider: Lane Hartley Adult HPI General Chief complaint: Fall Stated complaint: Fall/AMS Time Seen by Provider: 05/20/25 00:11 History of Present Illness HPI narrative: 54-year-old male with history of diabetes presents for fall. She reports that she was getting out of bed and her foot rolled up underneath her. She has chronic neuropathy in that foot. She fell onto her belly. She did not hit her head, did not lose consciousness. She denies any pain anywhere. She reports that this is the first time that she has fallen and that is why she wanted to get checked out but she has no complaints at this time. Denies any chest pain or shortness of breath now or at the time of the fall. Related Data Home Medications ?Medication ?Instructions ?Recorded ?Confirmed levothyroxine 25 mcg tablet 25 mcg PO DAILY 01/06/23 11/22/24 atorvastatin 20 mg tablet 20 mg PO DAILY 08/03/23 11/22/24 escitalopram oxalate 10 mg tablet mg PO 08/03/23 11/22/24 lisinopril 10 mg tablet 10 mg PO DAILY 08/03/23 11/22/24 diclofenac sodium 50 mg mg PO 11/22/24 11/22/24 tablet,delayed release lancets 33 gauge (OneTouch Delica #100 ea 11/22/24 11/22/24 Plus Lancet) metformin 1,000 mg tablet mg PO 11/22/24 11/22/24 Allergies Allergy/AdvReac Type Severity Reaction Status Date / Time No Known Allergies Allergy Verified 11/22/24 10:48 [facility] Disclaimer: The information contained in this section may have been updated after the patient was seen, as this information can be updated by other users. Medical History (Updated 05/20/25 @ 00:[address] MD) Anxiety HTN (hypertension) Surgical History (Updated 11/22/24 @ 10:54 by Wild Davis MA) No significant past surgical history Social History Smoking Status: Current some day smoker tobacco type: cigarettes packs per day: 1 alcohol intake: never substance use type: denies use current occupational status: unemployed and disabled Travel in the last 8 weeks?: None Other Medical History Have you received the Flu Vaccine for this season: No Have you received the Pneumonia Vaccine: No ROS Obtained: Yes All systems reviewed & no additional complaints except as documented Physical Exam General General appearance: alert and in no apparent distress Head Head exam: atraumatic and normocephalic Eye Eye exam: Present normal appearance, PERRL and EOMI ENT ENT exam: Present normal oropharynx and normal external ear exam Neck Neck exam: Present normal inspection and full ROM Chest Chest inspection: Present normal inspection and symmetric chest wall rise; Absent tenderness Respiratory Respiratory exam: Present normal lung sounds bilaterally; Absent respiratory distress Cardiovascular Cardiovascular exam: Present regular rate and normal rhythm Abdominal Exam Abdominal exam: Present soft; Absent distention, tenderness or guarding Extremities Exam Extremities exam: Present normal inspection; Absent edema or joint swelling Back Exam Back exam: Present normal inspection; Absent tenderness Neurological Exam Neurological exam: Present alert and oriented X3; Absent motor sensory deficit Psychiatric Psychiatric exam: Present normal affect and normal mood Skin Skin exam: Present warm, dry and normal color Lymphatic Lymphatic Findings: no adenopathy Medical Decision Making Medical Records Medical records reviewed: Yes I reviewed the patient's medical records. Screening: Per USPSTF and CDC recommendations, given the prevalence of disease in our region, it is our hospital?s policy to screen for HIV and viral Hepatitis for all patients aged 18 and over and those with ongoing risk factors. Shad Inquiry Pt receiving controlled substance: No Shad was queried for this patient: No Vital Signs: 05/20/25 00:11 05/20/25 00:20 05/20/25 00:31 Temperature 98.4 F Temperature Source Oral Pulse Rate 95 H Pulse Rate [Left Radial] 95 H Respiratory Rate 19 16 Blood Pressure 124/82 Blood Pressure [Right Arm] 153/88 H Blood Pressure Mean [Right Arm] 109 Blood Pressure Source Blood Pressure Source [Right Arm] Automatic Cuff Blood Pressure Position Blood Pressure Position [Right Arm] Supine 02 Sat by Pulse Oximetry 94 L 95 95 Oxygen Delivery Method Room Air Room Air 05/20/25 01:05 Temperature 97.9 F Temperature Source Oral Pulse Rate 92 H Pulse Rate [Left Radial] Respiratory Rate 16 Blood Pressure 125/90 Blood Pressure [Right Arm] Blood Pressure Mean [Right Arm] Blood Pressure Source Automatic Cuff Blood Pressure Source [Right Arm] Blood Pressure Position Supine Blood Pressure Position [Right Arm] 02 Sat by Pulse Oximetry Oxygen Delivery Method Room Air Lab Data Lab results reviewed: Yes I reviewed the patient's lab results. Lab Results 05/20/25 00:00: WBC 13.8 H, RBC 5.16, Hgb 15.5, Hct 45.0, MCV 87.2, MCH 30.0, MCHC 34.4, RDW 12.7, Plt Count 224, MPV 11.2 H, Neut % (Auto) 39.3, Lymph % (Auto) 53.4 H, Starr % (Auto) 4.1, Eos % (Auto) 1.7, Baso % (Auto) 0.8, Neut # (Auto) 5.4, Lymph # (Auto) 7.4 H, Starr # (Auto) 0.6, Eos # (Auto) 0.2, Baso # (Auto) 0.1, Total Counted 100, Neutrophils % (Manual) 30 L, Lymphocytes % (Manual) 62 H, Monocytes % (Manual) 3, Eosinophils % (Manual) 3, Basophils % (Manual) 2.0 H, Platelet Estimate Normal, RBC Morphology Normal, Sodium 144, Potassium 4.0, Chloride 102, Carbon Dioxide 28, Anion Gap 18.0 H, BUN 14, Creatinine 0.80, Estimated Creat Clear 64, Estimated GFR 75, Est GFR ( Amer) 90, Glucose 177 H, Calcium 8.9, Magnesium 1.7, Total Bilirubin 0.5, AST 30, ALT 40, Alkaline Phosphatase 62, Troponin I < 0.01, Total Protein 8.0, Albumin 4.4, Globulin 3.6 H, Albumin/Globulin Ratio 1.2, HCV Ab JESUSITA w/Rflx PCR Qn Negative, HIV Ag/Ab Combo Qual Negative 05/20/25 00:00 05/20/25 00:00 Orders (Tests/Meds): ORDERS Category Date Time Status CXR --portable [XR chest portable] Stat Exams 05/20/25 00:07 Completed Pelvis XR 1-2 views [XR pelvis 1-2V] Stat Exams 05/20/25 00:07 Completed CBC w/Auto Diff [Complete Blood Count Auto Diff] Stat Lab 05/20/25 00:00 Completed CMP [Comprehensive Metabolic Panel] Stat Lab 05/20/25 00:00 Completed HIV Combo Stat Lab 05/20/25 00:00 Completed Hepatitis C Ab Qual. W/ RFX Stat Lab 05/20/25 00:00 Completed MAG [Magnesium] Stat Lab 05/20/25 00:00 Completed Trop I [Troponin I] Stat Lab 05/20/25 00:00 Completed EKG Request [ECG Request] Stat Y 05/20/25 00:07 Ordered Medical Decision Narrative: 54-year-old female with history of diabetes and neuropathy presents for fall without significant complaint or trauma. History was obtained via interactive discussion with patient. On arrival, patient is [afebrile, hemodynamically stable, satting appropriately, alert, oriented x4, GCS 15], moving all extremities spontaneously. Full physical exam performed and significant for abnormal sensation in the right lateral lower leg. Patient reports this is normal for her Differential includes but is not limited to intracranial trauma intrathoracic trauma intra-abdominal trauma spine trauma extremity trauma electrolyte derangement hypoglycemia hyperglycemia. Workup initiated including chest x-ray pelvis x-ray basic labs EKG. On re-evaluation, patient [remains afebrile, HD stable.] No complaints. Laboratory workup independently interpreted by me and significant for mild leukocytosis, no other significant abnormality. EKG was independently interpreted by me and significant for normal sinus rhythm and ventricular rate of 92, no arrhythmia or ischemic changes. Interpreted 0017. Imaging independently interpreted by me and significant for clear lungs bilaterally, no evidence of pelvic fracture. See radiology read for full review of final results. Given patient history, exam and workup, patient's presentation most likely represents mechanical fall from standing without significant injury. I considered obtaining CT head and CT C-spine, but patient did not hit her head, has no neck pain and is not on blood thinners. Patient was discharged in stable condition. Return precautions given. Procedures Risk/Benefits of Procedure(s) Were Explained: Yes Critical Care Critical Care Time Critical Care Time: No
[2025-05-20 00:16] LABS: Hematocrit 45.0 % (37.0-47.0); Hemoglobin 15.5 g/dL (12.2-16.2); Immature Granulocytes % 0.7 %; Mean Corpuscular HGB Conc 34.4 g/dL (31.8-35.4); Mean Corpuscular Hemoglobin 30.0 pg (27.0-31.2); Mean Corpuscular Volume 87.2 fl (81-99); Nucleated Red Blood Cells % 0 %; Platelet Count 224 K/mm3 (142-424); Red Blood Count 5.16 M/mm3 (4.20-5.40); Red Cell Distribution Width-SD 40.1 fL; White Blood Count 13.8 K/mm3 (4.8-10.8)
[2025-05-20 00:20] VITALS: O2SAT 95
[2025-05-20 00:21] LABS: Albumin Level 4.4 g/dl (3.5-5.0); Chloride 102 mmol/L (98-107)
[2025-05-20 00:22] LABS: Potassium 4.0 mmoL/L (3.5-5.1); Sodium 144 mmol/L (136-145)
[2025-05-20 00:24] LABS: Alanine Aminotransferase 40 U/L (12-78); Albumin/Globulin Ratio 1.2 (1.1-1.8); Anion Gap 18.0 mEq/L (5-15); Aspartate Amino Transferase 30 U/L (14-36); Bilirubin,Total 0.5 mg/dl (0.2-1.3); Blood Urea Nitrogen 14 mg/dl (7-17); Carbon Dioxide 28 mmol/L (22.0-30.0); Creatinine Clearance Estimated 64 mL/min (50-200); Creatinine,Serum 0.80 mg/dl (0.52-1.04); Estimated Glomerular Filt Rate 75 ml/min (>60); GFR (African American) 90 ML/MIN (>60); Globulin 3.6 g/dL (1.3-3.2); Total Protein,Serum 8.0 g/dl (6.3-8.2)
[2025-05-20 00:25] LABS: Alkaline Phosphatase 62 U/L (38-126); Calcium 8.9 mg/dl (8.4-10.2); Glucose 177 mg/dl (74-100); Magnesium 1.7 mg/dl (1.6-2.3)
[2025-05-20 00:31] VITALS: BP 124/82; PULSE 95; RESP 16; O2SAT 95
[2025-05-20 00:37] LABS: Troponin I < 0.01 ng/ml (0.00-0.034)
[2025-05-20 00:56] LABS: Total Cells Counted 100
[2025-05-20 00:57] LABS: RBC Morphology Normal
[2025-05-20 01:05] VITALS: BP 125/90; PULSE 92; RESP 16; TEMP 36.6; O2SAT 96
[2025-05-20 01:24] LABS: Hepatitis C Ab Qual. W/ RFX NEGATIVE (Negative)
== END 2025-05-20 01:08 | disposition home or self-care (01) ==
PROVIDERS: Emergency Provider Emergency Medicine; PCP Nurse Practitioner
DX: G62.89 Other specified polyneuropathies (principal); E11.40 Type 2 diabetes mellitus with diabetic neuropathy, unspecified; E11.65 Type 2 diabetes mellitus with hyperglycemia; I10 Essential (primary) hypertension; F17.210 Nicotine dependence, cigarettes, uncomplicated; W18.39XA Other fall on same level, initial encounter; Z79.84 Long term (current) use of oral hypoglycemic drugs
CPT/HCPCS: 71045; 72170; 80053; 83735; 84484; 85007; 85025; 86803; 87389; 93005; 99285

== ENCOUNTER 2025-05-24 10:16 | Emergency (ER) | payer OTHER, SELFPAY ==
[2025-05-24 10:16] VITALS: BP 179/114; PULSE 85; RESP 20; TEMP 36.9; O2SAT 97; BMI 44.2
--- NOTE | 2025-05-24 10:24 | HMH.EDGENADL ---
Discharge Plan Disposition Patient Disposition: Home, Self-Care Prescriptions Prescriptions: No Action levothyroxine 25 mcg tablet 25 mcg PO DAILY escitalopram oxalate 10 mg tablet PO atorvastatin 20 mg tablet 20 mg PO DAILY lisinopril 10 mg tablet 10 mg PO DAILY metformin 1,000 mg tablet PO diclofenac sodium 50 mg tablet,delayed release (DR/EC) PO (DME) lancets [OneTouch Delica Plus Lancet] 33 gauge misc See Rx Instructions .ROUTE .MEDSUPPLY Qty: 100 Rx Instructions: As directed Referrals Follow up/Referrals: Cha Almaraz APRN [Primary Care Provider, Medical] - See instructions Activity Restrictions/Add. Instructions Additional Instructions/Restrictions: You likely had muscle cramps of your legs. Keep drinking plenty of fluids, including water, sugar-free Gatorade and Pedialyte. Follow-up with your primary care doctor. If you develop any new or worsening symptoms, or if you become concerned for your help for any reason, return to the emergency department for evaluation Clinical Impressions Clinical Impression: Cramps of right lower extremity, Cramp of muscle of right upper extremity Print Language Print Language: [place] Discharge ED Provider: David Charles General Adult HPI General Chief complaint: Fall Stated complaint: Fall Time Seen by Provider: 05/24/25 10:22 History of Present Illness HPI narrative: Magy Diaz is a 54F with a history of diabetes, hypertension, who is noncompliant with her medication who presents from her PCP office for episode of her right arm and right leg giving out . Patient states that she was sitting down in her right knee/thigh cramped up, causing her leg to bend underneath her. She states that at the same time, her right arm cramped up and turned inward. She was getting her blood pressure checked at the time. She states that she ended up in the floor but did not hit her head. She denies any new trauma. She states that she has chronic numbness to her right leg from the knee to the ankle. She denies any recreational drug use or alcohol use. She states that her symptoms have completely resolved except for the chronic numbness. She was noted to be hypertensive at the doctor's office. Related Data Home Medications ?Medication ?Instructions ?Recorded ?Confirmed levothyroxine 25 mcg tablet 25 mcg PO DAILY 07/19/23 06/04/25 atorvastatin 20 mg tablet 20 mg PO DAILY 08/03/23 11/22/24 escitalopram oxalate 10 mg tablet mg PO 08/03/23 11/22/24 lisinopril 10 mg tablet 10 mg PO DAILY 08/03/23 11/22/24 diclofenac sodium 50 mg mg PO 11/22/24 11/22/24 tablet,delayed release lancets 33 gauge (GayeTouch Delica #100 ea 11/22/24 11/22/24 Plus Lancet) metformin 1,000 mg tablet mg PO 11/22/24 11/22/24 Allergies Allergy/AdvReac Type Severity Reaction Status Date / Time No Known Allergies Allergy Verified 11/22/24 10:48 [facility] Disclaimer: The information contained in this section may have been updated after the patient was seen, as this information can be updated by other users. Medical History (Updated 05/24/25 @ 12:53 by David Charles MD) Anxiety HTN (hypertension) Surgical History (Updated 11/22/24 @ 10:54 by Wild Davis MA) No significant past surgical history Social History Smoking Status: Never smoker alcohol intake: never substance use type: denies use current occupational status: unemployed and disabled Travel in the last 8 weeks?: None Have you lived/traveled outside [place] in past 30 days?: No Contact w/someone who lives/traveled outside [place] past 30 days?: No Exposure to someone with infectious disease in past 14 days?: No Do you have a fever (greater than 100.4 F or 38 C)?: No Have you tested positive for COVID-19?: No Exposed to someone with COVID-19 in past 14 days?: No Do you have a sore throat?: No Do you have a cough?: No Do you have any weakness?: No Do you have any diarrhea?: No Are you experiencing any unusual bleeding?: No Do you have any muscle aches/pain?: No Do you have any abdominal pain?: No Are you experiencing loss of taste or smell?: No Other Medical History Have you received the Flu Vaccine for this season: No Have you received the Pneumonia Vaccine: No ROS Obtained: Yes Systems reviewed as appropriate & no additional complaints except as documented Physical Exam General General appearance: alert and in no apparent distress Head Head exam: atraumatic Eye Eye exam: Present normal appearance ENT ENT exam: Present normal external ear exam Neck Neck exam: Present full ROM Chest Chest inspection: Present symmetric chest wall rise Respiratory Respiratory exam: Present normal lung sounds bilaterally; Absent respiratory distress, wheezes or stridor Cardiovascular Cardiovascular exam: Present regular rate and normal rhythm Abdominal Exam Abdominal exam: Present soft; Absent distention, tenderness, guarding or rigidity Extremities Exam Extremities exam: Present normal inspection; Absent tenderness or edema Back Exam Back exam: Present normal inspection Neurological Exam Neurological exam: Present alert, oriented X3, CN II-XII intact and motor sensory deficit (Subjective decrease sensation over the lateral aspect of her gunn, patient states that this is chronic. 5 out of 5 strength to bilateral lower extremities with hip flexion, knee flexion and extension, dorsiflexion plantarflexion of ankles. 2+ DP and PT pulses bilaterally.) Psychiatric Psychiatric exam: Present normal affect Skin Skin exam: Present warm and dry Medical Decision Making Medical Records Screening: Per USPSTF and CDC recommendations, given the prevalence of disease in our region, it is our hospital?s policy to screen for HIV and viral Hepatitis for all patients aged 18 and over and those with ongoing risk factors. Shad Inquiry Pt receiving controlled substance: No Vital Signs: 05/24/25 10:16 05/24/25 10:30 05/24/25 10:42 Temperature 98.5 F Temperature Source Oral Pulse Rate 90 Pulse Rate [Left Radial] 85 Respiratory Rate 20 Blood Pressure 139/91 H Blood Pressure [Right Arm] 179/114 H Blood Pressure Mean [Right Arm] 135 02 Sat by Pulse Oximetry 97 95 98 Oxygen Delivery Method Room Air Room Air 05/24/25 11:30 Temperature Temperature Source Pulse Rate 85 Pulse Rate [Left Radial] Respiratory Rate Blood Pressure 145/87 H Blood Pressure [Right Arm] Blood Pressure Mean [Right Arm] 02 Sat by Pulse Oximetry 95 Oxygen Delivery Method Lab Data Lab Results 05/24/25 10:08: WBC 12.8 H, RBC 4.92, Hgb 14.6, Hct 43.0, MCV 87.4, MCH 29.7, MCHC 34.0, RDW 12.9, Plt Count 226, MPV 10.9 H, Neut % (Auto) 50.9, Lymph % (Auto) 41.5, [place] % (Auto) 4.5, Eos % (Auto) 1.7, Baso % (Auto) 0.7, Neut # (Auto) 6.5, Lymph # (Auto) 5.3 H, [place] # (Auto) 0.6, Eos # (Auto) 0.2, Baso # (Auto) 0.1, Total Counted 100, Neutrophils % (Manual) 57, Lymphocytes % (Manual) 39, Monocytes % (Manual) 2, Eosinophils % (Manual) 2, Platelet Estimate Normal, RBC Morphology Normal, Sodium 138, Potassium 4.4, Chloride 99, Carbon Dioxide 25, Anion Gap 18.4 H, BUN 14, Creatinine 0.70, Estimated Creat Clear 76, Estimated GFR 87, Est GFR ( Amer) 106, Glucose 177 H, Calcium 8.8, Phosphorus 3.7, Magnesium 1.7, Total Bilirubin 0.8, AST 30, ALT 39, Alkaline Phosphatase 71, Total Protein 8.1, Albumin 4.6, Globulin 3.5 H, Albumin/Globulin Ratio 1.3, TSH 3.06, Free T4 1.15 05/24/25 10:08 05/24/25 10:08 Orders (Tests/Meds): ORDERS Category Date Time Status CBC w/Auto Diff [Complete Blood Count Auto Diff] Stat Lab 05/24/25 10:08 Completed CMP [Comprehensive Metabolic Panel] Stat Lab 05/24/25 10:08 Completed Calcium, Ionized Stat Lab 05/24/25 11:05 Received Free T4 (Free Thyroxine) Stat Lab 05/24/25 10:08 Completed Magnesium Stat Lab 05/24/25 10:08 Completed Phosphorous Stat Lab 05/24/25 10:08 Completed TSH [Thyroid Stimulating Hormone] Stat Lab 05/24/25 10:08 Completed Medical Decision Narrative: Magy Diaz is a 54F with a history of diabetes, hypertension, who is noncompliant with her medication who presents from her PCP office for episode of her right arm and right leg giving out . Patient states that she was sitting down in her right knee/thigh cramped up, causing her leg to bend underneath her. She states that at the same time, her right arm cramped up and turned inward. She was getting her blood pressure checked at the time. She states that she ended up in the floor but did not hit her head. She denies any new trauma. She states that she has chronic numbness to her right leg from the knee to the ankle. She denies any recreational drug use or alcohol use. She states that her symptoms have completely resolved except for the chronic numbness. She was noted to be hypertensive at the doctor's office. On arrival, patient is hemodynamically stable, no acute distress, maintaining appropriate oxygen saturation on room air. Physical exam, as stated above, revealed an overall well-appearing female in no distress. She has full range of motion in both upper and lower extremities. No focal neurological deficits except for mild subjective decrease sensation over the lateral aspect of her right leg, however she states that this is chronic. Abdomen soft, nontender nondistended. Cardiopulmonary exams unremarkable. No cranial nerve deficits. Differential diagnosis includes, but is not limited to: Muscle cramps, electrolyte derangement, hypocalcemia, metabolic derangement, among others. The most morbid conditions were considered and workup was based on these. I have low concern for stroke etiology as patient describes transient episode of cramping type pain in both of her extremities and has no focal neurological deficits. Will obtain hematologic labs. Workup shows mild leukocytosis of 12.8 but no anemia, platelets within normal limits. Electrolytes within normal limits, calcium normal at 8.8. Ionized calcium is a send out. Anion gap mildly elevated 18.4. Magnesium normal at 1.7. Thyroid studies within normal limits. Critical Care Critical Care Time Critical Care Time: No
[2025-05-24 10:30] VITALS: BP 139/91; PULSE 90; O2SAT 95
[2025-05-24 10:39] LABS: Hematocrit 43.0 % (37.0-47.0); Hemoglobin 14.6 g/dL (12.2-16.2); Immature Granulocytes % 0.7 %; Mean Corpuscular HGB Conc 34.0 g/dL (31.8-35.4); Mean Corpuscular Hemoglobin 29.7 pg (27.0-31.2); Mean Corpuscular Volume 87.4 fl (81-99); Nucleated Red Blood Cells % 0 %; Platelet Count 226 K/mm3 (142-424); Red Blood Count 4.92 M/mm3 (4.20-5.40); Red Cell Distribution Width-SD 40.8 fL; White Blood Count 12.8 K/mm3 (4.8-10.8)
[2025-05-24 10:42] VITALS: O2SAT 98
[2025-05-24 10:46] LABS: Albumin Level 4.6 g/dl (3.5-5.0); Chloride 99 mmol/L (98-107)
[2025-05-24 10:47] LABS: Potassium 4.4 mmoL/L (3.5-5.1); Sodium 138 mmol/L (136-145)
[2025-05-24 10:49] LABS: Alanine Aminotransferase 39 U/L (12-78); Albumin/Globulin Ratio 1.3 (1.1-1.8); Alkaline Phosphatase 71 U/L (38-126); Anion Gap 18.4 mEq/L (5-15); Aspartate Amino Transferase 30 U/L (14-36); Bilirubin,Total 0.8 mg/dl (0.2-1.3); Blood Urea Nitrogen 14 mg/dl (7-17); Carbon Dioxide 25 mmol/L (22.0-30.0); Creatinine Clearance Estimated 76 mL/min (50-200); Creatinine,Serum 0.70 mg/dl (0.52-1.04); Estimated Glomerular Filt Rate 87 ml/min (>60); GFR (African American) 106 ML/MIN (>60); Globulin 3.5 g/dL (1.3-3.2); Total Protein,Serum 8.1 g/dl (6.3-8.2)
[2025-05-24 10:50] LABS: Calcium 8.8 mg/dl (8.4-10.2); Glucose 177 mg/dl (74-100); Magnesium 1.7 mg/dl (1.6-2.3); Phosphorous 3.7 mg/dl (2.5-4.5)
[2025-05-24 11:14] LABS: RBC Morphology Normal; Total Cells Counted 100
[2025-05-24 11:20] LABS: Thyroid Stimulating Hormone 3.06 uIU/mL (0.465-4.68)
[2025-05-24 11:26] LABS: Free T4 (Free Thyroxine) 1.15 ng/dl (0.78-2.19)
[2025-05-24 11:30] VITALS: BP 145/87; PULSE 85; O2SAT 95
--- NOTE | 2025-05-24 12:44 | PC.NURSE ---
per Dr Charles, lab called about the ionized calcium results, per lab, its a send out and we will not receive results today. Dr Charles notified.
[2025-05-24 12:55] VITALS: BP 152/94; PULSE 75; RESP 16; TEMP 36.6; O2SAT 100
[2025-05-25 15:11] LABS: Calcium, Ionized 5.0 mg/dL (4.5-5.6)
== END 2025-05-24 13:02 | disposition home or self-care (01) ==
PROVIDERS: Emergency Provider Student in an Organized Health Care Education/Training Program; PCP Nurse Practitioner
DX: R25.2 Cramp and spasm (principal); I10 Essential (primary) hypertension; E11.65 Type 2 diabetes mellitus with hyperglycemia; G62.9 Polyneuropathy, unspecified; Z79.84 Long term (current) use of oral hypoglycemic drugs
CPT/HCPCS: 80053; 82330; 83735; 84100; 84439; 84443; 85007; 85025; 99283; 99285